=== PATIENT | female | born 1965 | race Caucasian/White ===

== ENCOUNTER 2022-12-01 19:27 | Inpatient (IN) | payer OTHER ==
[~2022-12-01] VITALS: Ht 159.4 cm; Wt 68.5 kg
--- NOTE | 2022-12-02 12:50 | NUR ---
DOWNSTREAM BIOMANUFACTURING TECHNICIANSTENCIL INSPECTOR NOTES: ADMITTED THIS 57 YEARS OLD FEMALE FROM [facility] ADMITTING HOSPITALIST DMITRY SAEED BOTTLE INSPECTOR,ALERT AND ORIENTED X 4 NOT IN ANY DISTRESS, ON ROOM AIR O2 SAT 95%, RESPIRATION IS EVEN AND UNLABORED NOTED WITH RIGHT FOOD WOUND WHICH IS WRAPPED, ADMITTING DX RIGHT FOOT CELLULITIS AND WOUND INFECTION, BED KEPT IN LOW AND LOCKED POSITION, CALL LIGHT WITHIN REACH, WILL ASSESS AND MONITOR
[2022-12-02] MEDS ORDERED: MAG HYDROX/AL HYDROX/SIMETH 30 ML UDC PO PRN (13:00)
[2022-12-02] MEDS ORDERED: ONDANSETRON HCL/PF 4 MG/2 ML VIAL IVP PRN (13:00)
[2022-12-02] MEDS ORDERED: DEXTROSE 50%-WATER 50 ML DISP.SYRIN IV PRN (13:00)
[2022-12-02] MEDS ORDERED: Z GUARD REMEDY 4 OZ OINT TP PRN (13:00)
[2022-12-02] MEDS ORDERED: ZOLPIDEM TARTRATE 5 MG TABLET PO PRN (13:00)
[2022-12-02] MEDS ORDERED: ACETAMINOPHEN 325 MG TABLET PO PRN (13:00)
[2022-12-02] MEDS ORDERED: MAGNESIUM HYDROXIDE 30 ML UDC PO PRN (13:00)
[2022-12-02] MEDS ORDERED: GABA600T PO (13:28)
[2022-12-02] MEDS ORDERED: HYDR25TA4 PO (13:45)
[2022-12-02] MEDS ORDERED: METO50TA16 PO (13:45)
[2022-12-02] MEDS: HYDROCODONE/APAP 5/325MG TABLET PO PRN (14:59)
[2022-12-02 16:00] VITALS: BP 125/71
--- NOTE | 2022-12-02 16:00 | NUR ---
RN NOTES: RIGHT MID FOOT AMPUTATION WOUND PHOTOS TAKEN AND PLACED IN THE CHART
[2022-12-02] MEDS: IV NS 0.9% 1,000 ML IV PRN (16:57)
[2022-12-02] MEDS: BLOOD SUGAR DIAGNOSTIC 1 EACH STRIP IN SCH ×2 (17:04→22:32)
[2022-12-02] MEDS: INSULIN REGULAR, HUMAN 100 UNIT/ML 3 ML VIAL SQ PRN ×2 (17:56→22:26)
[2022-12-02] MEDS ORDERED: ACET-868 PO (19:13)
[2022-12-02] MEDS ORDERED: ASPI-1169 PO (19:13)
[2022-12-02] MEDS ORDERED: ERGO500040 PO (19:13)
[2022-12-02] MEDS ORDERED: LACT1CAP71 PO (19:13)
[2022-12-02] MEDS ORDERED: INSU100V39 SQ (19:13)
[2022-12-02] MEDS ORDERED: MULT-754 PO (19:13)
[2022-12-02] MEDS ORDERED: ASCO-340 PO (19:13)
[2022-12-02] MEDS ORDERED: CLOP75TA15 PO (19:13)
[2022-12-02] MEDS ORDERED: OXYC10TA49 PO (19:13)
[2022-12-02] MEDS ORDERED: LEVO500T90 PO (19:13)
[2022-12-02] MEDS ORDERED: ONDA4TAB5 PO (19:13)
[2022-12-02] MEDS ORDERED: ATOR40TA PO (19:13)
[2022-12-02] MEDS ORDERED: ALBU6.7H9 IH (19:13)
[2022-12-02] MEDS ORDERED: RISP0.2515 PO (19:13)
[2022-12-02] MEDS ORDERED: DOXY100C2 PO (19:13)
[2022-12-02] MEDS ORDERED: VANC125C11 PO (19:13)
[2022-12-02] MEDS ORDERED: GABA-532 PO (19:13)
[2022-12-02] MEDS ORDERED: MELO-105 PO (19:13)
[2022-12-02] MEDS ORDERED: DICL100G34 TP (19:13)
[2022-12-02] MEDS ORDERED: ESCI10TA PO (19:13)
[2022-12-02] MEDS ORDERED: PANT40TA2 PO (19:13)
--- NOTE | 2022-12-02 19:40 | NUR ---
RN CLOSING NOTE PATIENT IN BED RESTING. A/OX4, ABLE TO COMMUNICATE NEEDS WITH THE STAFF. BREATHING EVEN AND NON LABORED, NO SOB. IV ACCESS LEFT FOREARM GAUGE#20 .. SAFETY MEASURES IN PLACE. KEPT BED IN LOCKED AND IN LOW POSITION, SIDE RAILS UP X2, CALL LIGHT WITHIN REACH. ENDORSED TO INCOMING SHIFT FOR CONTINUITY OF CARE.
[2022-12-02] MEDS: HYDROCODONE/APAP 10/325MG TABLET PO PRN (19:48)
[2022-12-02 20:00] VITALS: BP 140/76
--- NOTE | 2022-12-02 20:36 | NUR ---
MS RN OPENING NOTES; RECEIVED PATIENT AWAKE IN BED, BED IN LOW POSITION, CALL LIGHTS WITHIN REACH, NO COMPLAIN OF PAIN AND DISCOMFORT AT THIS TIME, ON ROOM AIR SATURATING WELL, PATIENT IS A/OX4 ABLE TO MAKE NEEDS KNOWN, AMBULATORY WITH SUPERVISION, ON ROOM AIR SATURATING WELL, PATIENT KEPT CLEAN AND DRY ALL NEEDS MET WILL CONTINUE TO MONITOR.
[2022-12-03] VITALS: BP 140/76
[2022-12-03] MEDS: HYDROCODONE/APAP 10/325MG TABLET PO PRN ×6 (00:15→23:20)
[2022-12-03 04:00] VITALS: BP 149/86
[2022-12-03] MEDS: IV NS 0.9% 1,000 ML IV PRN ×2 (05:28→18:13)
--- NOTE | 2022-12-03 06:50 | NUR ---
MS RN CLOSING NOTES: PATIENT AWAKE IN BED, BED IN LOW POSITION CALL LIGHTS WITHIN REACH, NO COMPLAIN OF PAIN AND DISCOMFORT AT THIS TIME, ON ROOM AIR SATURATING WELL, PATIENT IS A/O X4 ABLE TO MAKE NEEDS KNOW, PATIENT KEPT CLEAN AND DRY ALL NEEDS MET ENDORSE TO INCOMING SHIFT.
[2022-12-03 07:03] LABS: BASOPHILS % (AUTO) 0.3 % (0.0-2.0); EOSINOPHILS % (AUTO) 2.3 % (0.0-6.0); HEMATOCRIT 25 % (33-45); HEMOGLOBIN 8.1 g/dL (11.5-14.8); LYMPHOCYTES # (AUTO) 1.1 K/uL (0.8-4.8); LYMPHOCYTES % (AUTO) 15.6 % (20.0-44.0); MEAN CORPUSCULAR HGB CONC 32 g/dl (31.0-36.0); MEAN CORPUSCULAR VOLUME 83 fL (82-100); MONOCYTES # (AUTO) 0.7 K/uL (0.1-1.30); MONOCYTES % (AUTO) 9.1 % (2.0-12.0); NEUTROPHILS # (AUTO) 5.3 K/uL (1.8-8.9); NEUTROPHILS % (AUTO) 72.7 % (43.0-81.0); PLATELET COUNT (AUTO) 347 K/uL (150-450); RED BLOOD CELL COUNT(AUTO) 3.04 MIL/uL (4.0-5.2); WHITE BLOOD COUNT (AUTO) 7.3 K/uL (4.3-11.0)
[2022-12-03 07:17] LABS: CALCIUM, SERUM 8.2 mg/dL (8.5-10.1); MAGNESIUM 1.8 mg/dL (1.8-2.4); PHOSPHORUS 3.7 mg/dL (2.5-4.9); POTASSIUM 4.4 mmol/L (3.5-5.1)
[2022-12-03 07:30] LABS: THYROID STIMULATING HORMONE 3.713 uIU/mL (0.358-3.74)
[2022-12-03] MEDS ORDERED: PANTOPRAZOLE 40 MG TABLET.DR PO SCH (07:30)
[2022-12-03] MEDS: BLOOD SUGAR DIAGNOSTIC 1 EACH STRIP IN SCH ×4 (07:46→21:22)
[2022-12-03 08:00] VITALS: BP 156/92
[2022-12-03] MEDS ORDERED: VANCOMYCIN 1.5 GM in IV D5W 500ml IV ONE (08:00)
--- NOTE | 2022-12-03 08:00 | NUR ---
MS RN OPENING NOTES; RECEIVED PATIENT AWAKE IN BED, BED IN LOW POSITION, CALL LIGHTS WITHIN REACH, NO COMPLAIN OF PAIN AND DISCOMFORT AT THIS TIME, ON ROOM AIR SATURATING WELL, PATIENT IS A/OX4 ABLE TO MAKE NEEDS KNOWN, AMBULATORY WITH SUPERVISION, ON ROOM AIR SATURATING WELL. LEFT FOREARM PIV NOTED PATENT AND INTACT, FLUSHES WELL WITH NS RUNNING ORDERED. CALL LIGHT WITHIN REACH. PLAN OF CARE CONTINUE.
[2022-12-03 08:03] LABS: ALBUMIN 1.9 g/dL (3.4-5.0); BILIRUBIN,DIRECT 0.2 mg/dL (0.0-0.2); BILIRUBIN,TOTAL 0.2 mg/dL (0.2-1.0); TOTAL PROTEIN, SERUM 6.5 g/dL (6.4-8.2)
[2022-12-03 08:05] LABS: CREATININE 0.9 mg/dL (0.6-1.3)
[2022-12-03] MEDS: HEPARIN SODIUM, PORCINE 5000 UNITS/1 ML VIAL SQ SCH ×2 (08:07→21:13)
[2022-12-03] MEDS: CEFEPIME 2 GM in IV D5W 100 ML IV SCH ×3 (09:06→21:07)
[2022-12-03] MEDS: INSULIN REGULAR, HUMAN 100 UNIT/ML 3 ML VIAL SQ PRN ×3 (12:32→21:25)
[2022-12-03 16:00] VITALS: BP 121/92
--- NOTE | 2022-12-03 16:00 | NUR ---
WOUND CULTURE DONE AND SENT TO THE LAB
--- NOTE | 2022-12-03 16:00 | NUR ---
SEEN BY NUCLEAR DESIGN ENGINEER, RIGHT FOOT WOUND CARE RENDERED BY , WITH NEW ORDER NOTED AND CARRIED OUT. PATIENT WILL HAVE WOUND DEBRIDEMENT ON 12/06/22, NPO AFTER MIDNIGHT AND CAN HOLD BLOOD THINNERS ON THE DAY OFF THE SURGERY. NOTED AND CARRIED OUT.
--- NOTE | 2022-12-03 17:30 | NUR ---
NOTED PATIENT HOME MEDICATIONS IS NOT REVIEWED, INFORMED DMITRY AUTO REPAIR TECHNICIAN, PER DMITRY HE WILL REVIEWED IT, CHARGE NURSE LAURA OCASIO.
--- NOTE | 2022-12-03 17:41 | NUR ---
UA COLLECTED AND PLACED TO THE FRIDGE, CALLED LAB TO PICK IT UP
--- NOTE | 2022-12-03 18:25 | NUR ---
MS RN CLOSING NOTES; PATIENT SLEEPING IN BED, ALERT AND VERBALLY RESPONSIVE WHEN AWAKEN, BED IN LOW POSITION, CALL LIGHTS WITHIN REACH, NO COMPLAIN OF PAIN AND DISCOMFORT AT THIS TIME, ON ROOM AIR SATURATING WELL, PATIENT IS A/OX4 ABLE TO MAKE NEEDS KNOWN, AMBULATORY WITH SUPERVISION, ON ROOM AIR SATURATING WELL. RIGHT FOREARM PIV NOTED PATENT AND INTACT, FLUSHES WELL WITH NS RUNNING ORDERED. CALL LIGHT WITHIN REACH. WILL ENDORSE TO NIGHT NURSE FOR MARY.
[2022-12-03 18:35] LABS: BILIRUBIN,URINE NEGATIVE (NEGATIVE); COLOR,URINE YELLOW (YELLOW); LEUKOCYTE ESTERASE ,URINE NEGATIVE (NEGATIVE); NITRITE, URINE NEGATIVE (NEGATIVE); PROTEIN,URINE NEGATIVE (NEGATIVE); UGLUCOSE NEGATIVE (NEGATIVE); UROBILINOGEN,URINE 0.2 EU/dL (0.2)
[2022-12-03 18:59] LABS: BACTERIA,URINE None seen /HPF (None Seen); RBC,URINE 0-2 /HPF (0-2); SQUAMOUS EPITHELIAL CELL,UR Few /HPF (None Seen)
[2022-12-03 19:00] LABS: WBC,URINE 0-2 /HPF (0-3)
--- NOTE | 2022-12-03 19:15 | NUR ---
MS RN OPENING NOTES - RECEIVED PATIENT RESTING, HOB IN HIGH-SINGER'S. A/O X4. BREATHING EVEN AND NON-LABORED ON ROOM AIR. NOT IN APPARENT DISTRESS. C/O RIGHT FOOT PAIN 04/04. HAS RIGHT FOREARM IV ACCESS #22G WITH NS RUNNING AT 75 ML/HR. NO S/S OF INFILTRATION NOTED. RIGHT FOOT WOUND DRESSING DRY AND INTACT. SAFETY PRECAUTIONS IN PLACE: BED LOCKED AND IN LOW POSITION, SIDE RAILS UP X2, CALL LIGHT WITHIN REACH. WILL CONTINUE PLAN OF CARE.
[2022-12-03] MEDS: VANCOMYCIN 1 GM in IV D5W 250ml IV SCH (19:35)
[2022-12-03] MEDS: HYDROCODONE/APAP 5/325MG TABLET PO PRN (19:43)
[2022-12-03 20:00] VITALS: BP 160/87
[2022-12-03 21:38] VITALS: BP 162/92
--- NOTE | 2022-12-03 21:41 | NUR ---
NOTIFIED DR. WILSON THAT BP ARE HIGH: 161/79 AND 162/92. AWAITING RESPONSE. Addendum: 12/03/22 at 2243 by February PARAG PAGAN DR. WILSON RESPONDED ASKING WHAT DID THE PCP SAY, I REPLIED THAT NOTHING WAS ENDORSED TO ME. STILL AWAITING RESPONSE. PER , HE IS VERY BUSY. CHARGE NURSE AWARE. Addendum: 12/04/22 at 0622 by February PARAG PAGAN INPUT NEW ORDERS.
[2022-12-04] VITALS: BP 146/73
[2022-12-04] MEDS ORDERED: CLONIDINE HCL 0.1 MG TABLET PO PRN
[2022-12-04] MEDS: HYDROCODONE/APAP 5/325MG TABLET PO PRN ×3 (01:43→22:14)
[2022-12-04 04:00] VITALS: BP 155/80
[2022-12-04] MEDS: CEFEPIME 2 GM in IV D5W 100 ML IV SCH ×3 (04:24→21:23)
[2022-12-04] MEDS: HYDROCODONE/APAP 10/325MG TABLET PO PRN ×2 (05:24→10:31)
[2022-12-04 06:03] LABS: BASOPHILS % (AUTO) 0.7 % (0.0-2.0); EOSINOPHILS % (AUTO) 2.8 % (0.0-6.0); HEMATOCRIT 26 % (33-45); HEMOGLOBIN 8.3 g/dL (11.5-14.8); LYMPHOCYTES # (AUTO) 1.2 K/uL (0.8-4.8); LYMPHOCYTES % (AUTO) 18.5 % (20.0-44.0); MEAN CORPUSCULAR HGB CONC 32 g/dl (31.0-36.0); MEAN CORPUSCULAR VOLUME 81 fL (82-100); MONOCYTES # (AUTO) 0.5 K/uL (0.1-1.30); MONOCYTES % (AUTO) 8.5 % (2.0-12.0); NEUTROPHILS # (AUTO) 4.4 K/uL (1.8-8.9); NEUTROPHILS % (AUTO) 69.5 % (43.0-81.0); PLATELET COUNT (AUTO) 361 K/uL (150-450); RED BLOOD CELL COUNT(AUTO) 3.16 MIL/uL (4.0-5.2); WHITE BLOOD COUNT (AUTO) 6.4 K/uL (4.3-11.0)
[2022-12-04 06:16] LABS: CALCIUM, SERUM 8.5 mg/dL (8.5-10.1); CREATININE 0.7 mg/dL (0.6-1.3); POTASSIUM 4.7 mmol/L (3.5-5.1)
[2022-12-04] MEDS: BLOOD SUGAR DIAGNOSTIC 1 EACH STRIP IN SCH ×4 (07:02→22:02)
[2022-12-04] MEDS: INSULIN REGULAR, HUMAN 100 UNIT/ML 3 ML VIAL SQ PRN ×4 (07:03→22:00)
--- NOTE | 2022-12-04 07:27 | NUR ---
MS RN CLOSING NOTES - PATIENT LAYING IN BED, ABLE TO VERBALIZE NEEDS. NO ACUTE DISTRESS THROUGHOUT THE NIGHT. NO SOB OR NOTED. PAIN MANAGEMENT PER MD ORDER. AFEBRILE. HAS RIGHT HAND IV ACCESS #22G WITH NS RUNNING AT 75 ML/HR. INTACT, PATENT AND FLUSHING. RIGHT FOOT WOUND CARE RENDERED. ALL DUE MEDS GIVEN AND NEEDS ATTENDED. SAFETY PRECAUTIONS MAINTAINED. WILL ENDORSE TO NEXT SHIFT FOR MARY.
--- NOTE | 2022-12-04 07:30 | NUR ---
MS RN AM NOTES PT IN BED, AWAKE, AO X 4, ON ROOM AIR O2 SAT 95%, DENIES SOB, RESPIRATION UNLABORED, DENIES PAIN OR DISCOMFORT, RIGHT FOREARM IV ACCESS #22G WITH NS RUNNING AT 75 ML/HR. SITE CLEAR. CCHO DIET. SEE NURSING FLOWSHEET FOR SKIN ISSUES. RIGHT FOOT WOUND DRESSING DRY AND INTACT. BED REST FOR NOW. SAFETY PRECAUTIONS IN PLACE: BED LOCKED AND IN LOW POSITION, SIDE RAILS UP X2, CALL LIGHT WITHIN REACH. WILL CONTINUE PLAN OF CARE AND MONITOR
[2022-12-04] MEDS: PANTOPRAZOLE 40 MG TABLET.DR PO SCH (07:46)
[2022-12-04 08:00] VITALS: BP 136/73
[2022-12-04] MEDS: VANCOMYCIN 1 GM in IV D5W 250ml IV SCH ×2 (08:17→20:13)
[2022-12-04] MEDS: ESCITALOPRAM OXALATE (10 MG) 10 MG TABLET PO SCH (08:18)
[2022-12-04] MEDS: HYDROCHLOROTHIAZIDE 25 MG TABLET PO SCH ×2 (08:18→16:36)
[2022-12-04] MEDS: GABAPENTIN 300 MG CAPSULE PO SCH ×3 (08:18→16:36)
[2022-12-04] MEDS: METOPROLOL TARTRATE 50 MG TABLET PO SCH (08:19)
[2022-12-04] MEDS: ASPIRIN 81 MG TAB.CHEW PO SCH (08:20)
[2022-12-04] MEDS: DAKINS HALF STRENGTH (0.25%) 480 ML BOTTLE TOP SCH (08:21)
[2022-12-04] MEDS: HEPARIN SODIUM, PORCINE 5000 UNITS/1 ML VIAL SQ SCH ×2 (08:21→21:26)
--- NOTE | 2022-12-04 09:30 | NUR ---
RN NOTES DUE MEDS GIVEN
[2022-12-04] MEDS: IV NS 0.9% 1,000 ML IV PRN (12:34)
--- NOTE | 2022-12-04 15:13 | NUR ---
RN NOTES PATIENT MRSA + NARES. DR. DMITRY SAEED NOTIFIED.
[2022-12-04 16:00] VITALS: BP 128/71
--- NOTE | 2022-12-04 18:35 | NUR ---
MS RN CLOSING NOTES PT IN BED, AWAKE, AO X 4, ON ROOM AIR O2 SAT 99%, DENIES SOB, RESPIRATION UNLABORED, DENIES PAIN OR DISCOMFORT, RIGHT FOREARM IV ACCESS #22G WITH NS RUNNING AT 75 ML/HR. SITE CLEAR. CCHO DIET. RIGHT FOOT WOUND DRESSING DRY AND INTACT. CHANGED EARLIER. PM CARE DONE. BED REST FOR NOW. SAFETY PRECAUTIONS IN PLACE: BED LOCKED AND IN LOW POSITION, SIDE RAILS UP X2, CALL LIGHT WITHIN REACH. ALL NEEDS MET. WILL ENDORSE TO NEXT SHIFT FOR MARY. FOR DEBRIDEMENT ON TUESDAY. CONSENT SIGNED NPO POSTMIDNIGHT ON TUESDAY
--- NOTE | 2022-12-04 19:28 | NUR ---
RN OPENING NOTES; RECEIVED PT IN BED AAOX4 ABLE TO MAKE NEEDS KNOWN,ON RM AIR JOSE WELL SAT,98%,NO SOB/DISTRESS NOTED,IV SITE ON NAOMI ML,RHAND 22G WITH NS 75ML/HR INFUSING WELL,SAFETY MEASURE IN PLACE,CALL LIGHT WITHIN REACH,WILL CONTINUE TO MONITOR.
[2022-12-04 20:00] VITALS: BP 132/74
[2022-12-04] MEDS: ATORVASTATIN 40 MG TABLET PO SCH (21:23)
[2022-12-04] MEDS: risperiDONE 1 MG TABLET PO SCH (21:23)
[2022-12-04] MEDS: MUPIROCIN OINT 2% 22 GM TUBE NS SCH (21:45)
--- NOTE | 2022-12-04 22:14 | NUR ---
RN NOTES; PATIENT COMPLAINED OF RIGHT FOOT PAIN 7/,PRN NORCO 5-325MG PO WAS GIVEN,NO A/R NOTED.
[2022-12-05] MEDS: HYDROCODONE/APAP 5/325MG TABLET PO PRN ×4 (04:02→16:54)
--- NOTE | 2022-12-05 04:02 | NUR ---
RN NOTES; PATIENT COMPLAINED OF RIGHT FOOT PAIN 7/,PRN NORCO 5-325MG PO WAS GIVEN,NO A/R NOTED.
[2022-12-05] MEDS: CEFEPIME 2 GM in IV D5W 100 ML IV SCH ×3 (04:03→21:51)
[2022-12-05 05:00] VITALS: BP 130/76
[2022-12-05] MEDS: IV NS 0.9% 1,000 ML IV PRN ×2 (05:30→21:13)
--- NOTE | 2022-12-05 06:13 | NUR ---
RN CLOSING NOTES; PATIENT IN BED AAOX4 ABLE TO MAKE NEEDS KNOWN,ON RM AIR JOSE WELL SAT,99%,NO SOB/DISTRESS NOTED,DUE MEDS GIVEN ORDER,ALL NEEDS ATTENDED,PT ASKING PAIN MEDS ROUTINELY,IV SITE ON NAOMI ML,RHAND 22G WITH NS 75ML/HR INFUSING WELL,PT USED A BED SIDE COMMODE WITH FFW,AND ANGEL LUIS ASSIST,SAFETY MEASURE IN PLACE,CALL LIGHT WITHIN REACH,WILL ENDORSED TO NEXT SHIFT.
[2022-12-05 06:15] LABS: BASOPHILS # (AUTO) 0.1 K/uL (0.0-0.2); BASOPHILS % (AUTO) 0.7 % (0.0-2.0); EOSINOPHILS % (AUTO) 2.8 % (0.0-6.0); HEMATOCRIT 27 % (33-45); HEMOGLOBIN 8.5 g/dL (11.5-14.8); LYMPHOCYTES # (AUTO) 1.3 K/uL (0.8-4.8); LYMPHOCYTES % (AUTO) 19.1 % (20.0-44.0); MEAN CORPUSCULAR HGB CONC 32 g/dl (31.0-36.0); MEAN CORPUSCULAR VOLUME 83 fL (82-100); MONOCYTES # (AUTO) 0.6 K/uL (0.1-1.30); MONOCYTES % (AUTO) 8.4 % (2.0-12.0); NEUTROPHILS # (AUTO) 4.7 K/uL (1.8-8.9); PLATELET COUNT (AUTO) 367 K/uL (150-450); RED BLOOD CELL COUNT(AUTO) 3.21 MIL/uL (4.0-5.2); WHITE BLOOD COUNT (AUTO) 6.9 K/uL (4.3-11.0)
[2022-12-05] MEDS: INSULIN REGULAR, HUMAN 100 UNIT/ML 3 ML VIAL SQ PRN ×4 (06:36→21:59)
[2022-12-05] MEDS: BLOOD SUGAR DIAGNOSTIC 1 EACH STRIP IN SCH ×4 (06:37→22:03)
--- NOTE | 2022-12-05 07:15 | NUR ---
RN Note Received handover from LATASHA Agee. Patient is resting in bed and complained about right leg pain. Will check time for pain medication and administer according to schedule. Noted right LL edema, placed a pillow to elevate limb to reduce edema. Left upperarm ML is dry, intact and patent, right hand IV site is blocked, will remove the cannula later. NS running at 75mL/hr. Bed is locked and placed in the lowest position. All safety measures have been implemented. Will continue monitoring and care.
[2022-12-05 07:23] LABS: CALCIUM, SERUM 8.5 mg/dL (8.5-10.1); CREATININE 0.8 mg/dL (0.6-1.3); POTASSIUM 4.2 mmol/L (3.5-5.1)
[2022-12-05 08:00] VITALS: BP 144/81
[2022-12-05] MEDS: VANCOMYCIN 1 GM in IV D5W 250ml IV SCH (08:00)
[2022-12-05] MEDS: GABAPENTIN 300 MG CAPSULE PO SCH ×3 (08:28→16:54)
[2022-12-05] MEDS: PANTOPRAZOLE 40 MG TABLET.DR PO SCH (08:28)
[2022-12-05] MEDS: METOPROLOL TARTRATE 50 MG TABLET PO SCH (08:29)
[2022-12-05] MEDS: HYDROCHLOROTHIAZIDE 25 MG TABLET PO SCH ×2 (08:29→16:54)
[2022-12-05] MEDS: ESCITALOPRAM OXALATE (10 MG) 10 MG TABLET PO SCH (08:29)
[2022-12-05] MEDS: ASPIRIN 81 MG TAB.CHEW PO SCH (08:30)
[2022-12-05] MEDS: HEPARIN SODIUM, PORCINE 5000 UNITS/1 ML VIAL SQ SCH ×2 (08:34→21:00)
[2022-12-05] MEDS: DAKINS HALF STRENGTH (0.25%) 480 ML BOTTLE TOP SCH (08:34)
[2022-12-05] MEDS: MUPIROCIN OINT 2% 22 GM TUBE NS SCH ×2 (08:34→20:48)
--- NOTE | 2022-12-05 08:37 | NUR ---
RN Note Vancomycin trough level is >20. Hold the AM dose of vancomycin. Pharmacist is informed.
[2022-12-05 12:00] VITALS: BP 110/75
--- NOTE | 2022-12-05 14:00 | NUR ---
RN note Assisted patient to transfer to commode. Steady gait and relatively stable balance noted.
[2022-12-05 16:00] VITALS: BP 127/67
--- NOTE | 2022-12-05 19:40 | NUR ---
RN OPENING NOTE RECEIVED PT IN BED, AWAKE. PT A/O X4, ABLE TO MAKE NEEDS KNOWN. ON ROOM AIR, AND TOLERATING RA WELL. NO SOB, NO RESPIRATORY DISTRESS NOTED. IV ACCESS ON LEFT UA MIDLINE, AND RIGHT HAND 22G WITH NS AT 75ML/HR INFUSING WELL. SAFETY MEASURE IN PLACE: BED LOCKED IN LOW POSITION, SR UP X2, CALL LIGHT WITHIN REACH. WILL CONTINUE TO MONITOR PT.
[2022-12-05] MEDS: VANCOMYCIN 0.75 GM in IV D5W 250 ML IV SCH (20:47)
[2022-12-05] MEDS: ATORVASTATIN 40 MG TABLET PO SCH (21:57)
[2022-12-05] MEDS: risperiDONE 1 MG TABLET PO SCH (21:57)
[2022-12-05] MEDS: HYDROCODONE/APAP 10/325MG TABLET PO PRN (23:50)
--- NOTE | 2022-12-05 23:50 | NUR ---
RN NOTE PT REPORTS PAIN TO RIGHT FOOT. ANNMARIE ADMINSTERED TO PT FOR PAIN.
[2022-12-06 01:02] VITALS: BP 141/85
[2022-12-06 04:00] VITALS: BP 125/80
[2022-12-06] MEDS: CEFEPIME 2 GM in IV D5W 100 ML IV SCH (05:44)
[2022-12-06] MEDS: HYDROCODONE/APAP 10/325MG TABLET PO PRN ×3 (05:53→20:51)
--- NOTE | 2022-12-06 05:55 | NUR ---
RN NOTE PT REPORTS PAIN TO RIGHT FOOT. ANNMARIE ADMINSTERED TO PT FOR PAIN.
--- NOTE | 2022-12-06 06:50 | NUR ---
RN CLOSING NOTE LEFT PT IN BED, AWAKE. PT A/O X4, ABLE TO MAKE NEEDS KNOWN. ON ROOM AIR, AND TOLERATING RA WELL. NO SOB, NO RESPIRATORY DISTRESS NOTED. IV ACCESS ON LEFT UA MIDLINE, AND RIGHT HAND 22G WITH NS AT 75ML/HR INFUSING WELL. SAFETY MEASURE IN PLACE: BED LOCKED IN LOW POSITION, SR UP X2, CALL LIGHT WITHIN REACH. ACCUCHEK WAS DONE, BS: 156. PT IS NPO D/T DEBRIDEMENT SCHEDULED FOR THIS AM. PATIENT IS TAKEN TO THE OR FOR WOUND DEBRIDEMENT. CHECK LIST COMPLETED. WILL ENDORSE TO AM SHIFT NURSE FOR MARY.
[2022-12-06 06:56] LABS: BASOPHILS # (AUTO) 0.1 K/uL (0.0-0.2); BASOPHILS % (AUTO) 0.7 % (0.0-2.0); EOSINOPHILS % (AUTO) 2.4 % (0.0-6.0); HEMATOCRIT 26 % (33-45); HEMOGLOBIN 8.2 g/dL (11.5-14.8); LYMPHOCYTES # (AUTO) 1.6 K/uL (0.8-4.8); LYMPHOCYTES % (AUTO) 22.3 % (20.0-44.0); MEAN CORPUSCULAR HGB CONC 32 g/dl (31.0-36.0); MEAN CORPUSCULAR VOLUME 83 fL (82-100); MONOCYTES # (AUTO) 0.6 K/uL (0.1-1.30); MONOCYTES % (AUTO) 8.5 % (2.0-12.0); NEUTROPHILS # (AUTO) 4.8 K/uL (1.8-8.9); NEUTROPHILS % (AUTO) 66.1 % (43.0-81.0); PLATELET COUNT (AUTO) 335 K/uL (150-450); RED BLOOD CELL COUNT(AUTO) 3.09 MIL/uL (4.0-5.2); WHITE BLOOD COUNT (AUTO) 7.3 K/uL (4.3-11.0)
[2022-12-06] MEDS ORDERED: ANESTHESIA TRAY IN PYXIS 1 EA TRAY MC ONE (07:07)
[2022-12-06] MEDS ORDERED: LIDOCAINE 1% INJ 50 ML MDV IJ ONE (07:08)
[2022-12-06 07:14] LABS: MAGNESIUM 1.8 mg/dL (1.8-2.4); PHOSPHORUS 3.5 mg/dL (2.5-4.9)
[2022-12-06 07:18] LABS: CALCIUM, SERUM 8.5 mg/dL (8.5-10.1); CREATININE 0.8 mg/dL (0.6-1.3); POTASSIUM 3.9 mmol/L (3.5-5.1)
--- NOTE | 2022-12-06 07:33 | NUR ---
RN OPENING NOTE RECEIVED PT IN BED, AWAKE. PT A/O X4, ABLE TO MAKE NEEDS KNOWN. ON ROOM AIR, AND TOLERATING RA WELL. NO SOB, NO RESPIRATORY DISTRESS NOTED. IV ACCESS ON LEFT UA MIDLINE, AND RIGHT HAND 22G WITH NS AT 75ML/HR INFUSING WELL. SAFETY MEASURE IN PLACE: BED LOCKED IN LOW POSITION, SR UP X2, CALL LIGHT WITHIN REACH.ACCUCHEK WAS DONE . PATIENT IS TAKEN TO THE OR FOR WOUND DEBRIDEMENT WILL FALLOW UP ON PATIENT CONDITION AFTER PATIENT RETUNE TO HER BED
[2022-12-06] MEDS: BLOOD SUGAR DIAGNOSTIC 1 EACH STRIP IN SCH ×4 (07:41→21:19)
[2022-12-06] MEDS ORDERED: CELLULOSE,OXIDIZED 1 PKT EACH MC ONE (07:59)
[2022-12-06] MEDS: VANCOMYCIN 0.75 GM in IV D5W 250 ML IV SCH ×3 (08:00→23:25)
[2022-12-06] MEDS ORDERED: FENTANYL PF 100MCG/2ML AMPUL ONE (08:21)
[2022-12-06] MEDS: METOPROLOL TARTRATE 50 MG TABLET PO SCH (09:03)
[2022-12-06] MEDS: GABAPENTIN 300 MG CAPSULE PO SCH ×3 (09:03→16:04)
[2022-12-06] MEDS: HYDROCHLOROTHIAZIDE 25 MG TABLET PO SCH ×2 (09:03→16:04)
[2022-12-06] MEDS: ASPIRIN 81 MG TAB.CHEW PO SCH (09:03)
[2022-12-06] MEDS: ESCITALOPRAM OXALATE (10 MG) 10 MG TABLET PO SCH (09:04)
[2022-12-06] MEDS: HEPARIN SODIUM, PORCINE 5000 UNITS/1 ML VIAL SQ SCH ×2 (09:07→20:52)
[2022-12-06] MEDS: DAKINS HALF STRENGTH (0.25%) 480 ML BOTTLE TOP SCH (09:07)
[2022-12-06] MEDS: MUPIROCIN OINT 2% 22 GM TUBE NS SCH ×2 (09:08→20:50)
[2022-12-06] MEDS: IV NS 0.9% 1,000 ML IV PRN ×2 (09:08→18:03)
[2022-12-06] MEDS: PANTOPRAZOLE 40 MG TABLET.DR PO SCH (09:10)
[2022-12-06] MEDS: HYDROCODONE/APAP 5/325MG TABLET PO PRN (09:17)
[2022-12-06] MEDS ORDERED: MUPIROCIN OINT 2% 22 GM TUBE TP SCH (10:00)
[2022-12-06] MEDS ORDERED: MORPHINE SULFATE INJ 4 MG/ML DISP.SYRIN IV PRN (11:00)
[2022-12-06] MEDS: INSULIN REGULAR, HUMAN 100 UNIT/ML 3 ML VIAL SQ PRN ×3 (11:35→21:16)
[2022-12-06] MEDS: MORPHINE SULFATE INJ 4 MG/ML DISP.SYRIN IV PRN (11:36)
[2022-12-06 12:10] VITALS: BP 110/78
[2022-12-06] MEDS: PROSOURCE / PROSTAT (PYXIS) 30 ML UDC GT SCH (16:04)
--- NOTE | 2022-12-06 18:41 | NUR ---
RN CLOSING NOTE PATIENT IS IN BED, AWAKE. PT A/O X4, ABLE TO MAKE NEEDS KNOWN. ON ROOM AIR, AND TOLERATING RA WELL. NO SOB, NO RESPIRATORY DISTRESS NOTED. IV ACCESS ON LEFT UA PICC LINE, NS AT 75ML/HR INFUSING WELL. PATIENT UNDERWENT RIGHT FOOT DEBRIDEMENT , SURGICAL DRESSING IN PLACE , DO NOT CHANGE DRESSING TILL TOMORROW AM BY SURGEON .SAFETY MEASURE IN PLACE: BED LOCKED IN LOW POSITION, SR UP X2, CALL LIGHT WITHIN REACH. ALL MEDICATIONS WERE ADMINISTRED , ALL NEEDS WERE MET . WILL ENDORSE TO SURPLUS PROPERTY DISPOSAL AGENT NURSE FOR MARY.
--- NOTE | 2022-12-06 19:20 | NUR ---
MS RN OPENING NOTE PATIENT IS IN BED, AWAKE. A/O X4, ABLE TO MAKE NEEDS KNOWN; S/P RIGHT FOOT DEBRIDEMENT; STABLE ON ROOM AIR, TOLERATING WELL AND NO S/S OF SOB AND RESPIRATORY DISTRESS NOTED; NO COMPLAINS OF PAIN AND DISCOMFORT AT THIS TIME; WITH IV ACCESS ON LEFT UA PICC LINE WITH NS AT 75ML/HR INFUSING WELL; SAFETY MEASURE IN PLACE: BED LOCKED IN LOW POSITION, SR UP X2, CALL LIGHT WITHIN REACH; ENCOURAGED VERBALIZATION OF NEEDS; WILL CONTINUE TO MONITOR THROUGHOUT SHIFT
[2022-12-06 20:00] VITALS: BP 146/87
[2022-12-06] MEDS: risperiDONE 1 MG TABLET PO SCH (21:03)
[2022-12-06] MEDS: ATORVASTATIN 40 MG TABLET PO SCH (21:03)
--- NOTE | 2022-12-06 22:30 | NUR ---
MS RN NOTE ACCUCHECK WAS DONE AND FBS WAS 253. ADMINISTERED 6 UNITS OF INSULIN PER SLIDING SCALE. PATIENT TOLERATED WELL; WILL CONTINUE TO MONITOR
[2022-12-07] MEDS: HYDROCODONE/APAP 10/325MG TABLET PO PRN ×3 (01:56→22:54)
[2022-12-07 04:00] VITALS: BP 127/81
[2022-12-07] MEDS: IV NS 0.9% 1,000 ML IV PRN ×2 (04:23→18:17)
[2022-12-07] MEDS: BLOOD SUGAR DIAGNOSTIC 1 EACH STRIP IN SCH ×4 (06:34→22:47)
[2022-12-07] MEDS: INSULIN REGULAR, HUMAN 100 UNIT/ML 3 ML VIAL SQ PRN ×4 (06:38→22:52)
[2022-12-07] MEDS: PANTOPRAZOLE 40 MG TABLET.DR PO SCH (06:38)
--- NOTE | 2022-12-07 06:40 | NUR ---
MS RN NOTE ACCUCHECK WAS DONE AND PATIENT'S BLOOD SUGAR WAS 155. ADMINISTERED 2 UNITS OF INSULIN PER SLIDING SCALE.
--- NOTE | 2022-12-07 06:51 | NUR ---
MS RN CLOSING NOTE PATIENT IN BED, ASLEEP. A/O X4, ABLE TO MAKE NEEDS KNOWN; S/P RIGHT FOOT WOUND DEBRIDEMENT; STABLE ON ROOM AIR, TOLERATING WELL AND NO S/S OF RESPIRATORY DISTRESS NOTED; NO COMPLAINS OF PAIN AND DISCOMFORT AT THIS TIME; WITH IV ACCESS ON LEFT UA PICC LINE WITH NS AT 75ML/HR INFUSING WELL; ADMINISTERED MEDICATIONS PRESCRIBED; PATIENT'S NEEDS ATTENDED; MONITORED PATIENT ACCORDINGLY; SAFETY MEASURE IN PLACE: BED LOCKED IN LOW POSITION, SR UP X2, CALL LIGHT WITHIN REACH; WILL ENDORSE TO AM NURSE FOR MARY.
[2022-12-07 06:55] LABS: BASOPHILS # (AUTO) 0.1 K/uL (0.0-0.2); BASOPHILS % (AUTO) 0.7 % (0.0-2.0); HEMATOCRIT 23 % (33-45); HEMOGLOBIN 7.2 g/dL (11.5-14.8); LYMPHOCYTES # (AUTO) 1.7 K/uL (0.8-4.8); LYMPHOCYTES % (AUTO) 19.4 % (20.0-44.0); MEAN CORPUSCULAR HGB CONC 32 g/dl (31.0-36.0); MEAN CORPUSCULAR VOLUME 83 fL (82-100); MONOCYTES # (AUTO) 0.6 K/uL (0.1-1.30); MONOCYTES % (AUTO) 7.4 % (2.0-12.0); NEUTROPHILS % (AUTO) 70.5 % (43.0-81.0); PLATELET COUNT (AUTO) 279 K/uL (150-450); RED BLOOD CELL COUNT(AUTO) 2.73 MIL/uL (4.0-5.2); WHITE BLOOD COUNT (AUTO) 8.5 K/uL (4.3-11.0)
[2022-12-07 07:14] LABS: CALCIUM, SERUM 8.3 mg/dL (8.5-10.1); CREATININE 0.7 mg/dL (0.6-1.3); POTASSIUM 3.9 mmol/L (3.5-5.1)
--- NOTE | 2022-12-07 07:20 | NUR ---
GENERAL HELPER OPENING NOTES Receiuevd pt awake in bed A4X4. No complaints of pain or discomfort at this time. Pt is on RA and tolerating it well. IV access on NAOMI PICC line patent and intact running NS @ 75cc/hr. HOB elevated to pts comfort. Siderails up at all times. Call light within reach. Will continue to monitor.
[2022-12-07 08:00] VITALS: BP 163/96
[2022-12-07] MEDS: GABAPENTIN 300 MG CAPSULE PO SCH ×3 (08:34→16:56)
[2022-12-07] MEDS: ESCITALOPRAM OXALATE (10 MG) 10 MG TABLET PO SCH (08:34)
[2022-12-07] MEDS: METOPROLOL TARTRATE 50 MG TABLET PO SCH (08:34)
[2022-12-07] MEDS: HYDROCHLOROTHIAZIDE 25 MG TABLET PO SCH ×2 (08:34→16:56)
[2022-12-07] MEDS: ASPIRIN 81 MG TAB.CHEW PO SCH (08:34)
[2022-12-07] MEDS: PROSOURCE / PROSTAT (PYXIS) 30 ML UDC GT SCH ×2 (08:36→17:40)
[2022-12-07] MEDS: MORPHINE SULFATE INJ 4 MG/ML DISP.SYRIN IV PRN (08:37)
[2022-12-07] MEDS: HEPARIN SODIUM, PORCINE 5000 UNITS/1 ML VIAL SQ SCH ×2 (09:00→21:00)
[2022-12-07] MEDS: DAKINS HALF STRENGTH (0.25%) 480 ML BOTTLE TOP SCH (09:09)
[2022-12-07] MEDS: MUPIROCIN OINT 2% 22 GM TUBE NS SCH ×2 (09:09→22:33)
[2022-12-07] MEDS: VANCOMYCIN 0.75 GM in IV D5W 250 ML IV SCH ×2 (10:17→22:46)
[2022-12-07 16:00] VITALS: BP 119/98
--- NOTE | 2022-12-07 16:19 | NUR ---
cm aware of discharge ,awaits bed in snf.
--- NOTE | 2022-12-07 18:33 | NUR ---
SERVICE LEARNING COORDINATOR CLOSING NOTES All due meds and tx given as ordered. Pt tolerated everything well. All needs attended to. Will endorse to oncoming nurse.
--- NOTE | 2022-12-07 19:30 | NUR ---
RN NOTE PATIENT IN BED, AAOX4, ABLE TO MAKE NEEDS KNOWN. S/P RIGHT FOOT WOUND DEBRIDEMENT, DRESSING INTACT, NO S/S OF ACTIVE BLEEDING. STABLE ON ROOM AIR, TOLERATING WELL AND NO S/S OF RESPIRATORY DISTRESS NOTE. NO C/O PAIN OR DISCOMFORT AT THIS TIME; WITH IV ACCESS ON LEFT UA PICC LINE WITH NS AT 75ML/HR INFUSING WELL, WELL JOSE. SAFETY PRECAUTION IMPLEMENTED AT ALL TIMES.
[2022-12-07] MEDS: ATORVASTATIN 40 MG TABLET PO SCH (22:31)
[2022-12-07] MEDS: risperiDONE 1 MG TABLET PO SCH (22:31)
[2022-12-08] VITALS: BP 134/85
[2022-12-08] MEDS: HYDROCODONE/APAP 10/325MG TABLET PO PRN ×3 (03:24→16:21)
[2022-12-08 06:51] LABS: BASOPHILS # (AUTO) 0.1 K/uL (0.0-0.2); BASOPHILS % (AUTO) 0.8 % (0.0-2.0); EOSINOPHILS % (AUTO) 2.7 % (0.0-6.0); HEMATOCRIT 23 % (33-45); HEMOGLOBIN 7.2 g/dL (11.5-14.8); LYMPHOCYTES # (AUTO) 1.7 K/uL (0.8-4.8); LYMPHOCYTES % (AUTO) 24.5 % (20.0-44.0); MEAN CORPUSCULAR HGB CONC 32 g/dl (31.0-36.0); MEAN CORPUSCULAR VOLUME 84 fL (82-100); MONOCYTES # (AUTO) 0.6 K/uL (0.1-1.30); MONOCYTES % (AUTO) 8.4 % (2.0-12.0); NEUTROPHILS # (AUTO) 4.5 K/uL (1.8-8.9); NEUTROPHILS % (AUTO) 63.6 % (43.0-81.0); PLATELET COUNT (AUTO) 239 K/uL (150-450); RED BLOOD CELL COUNT(AUTO) 2.68 MIL/uL (4.0-5.2); WHITE BLOOD COUNT (AUTO) 7.1 K/uL (4.3-11.0)
--- NOTE | 2022-12-08 07:00 | NUR ---
RN NOTE PT REMAINS IN STABLE CONDITION, NO SIGNIFICANT CHANGES NOTED. ADMINISTERED MEDICATIONS PRESCRIBED. ALL NEEDS ATTENDED. SAFETY MEASURE IN PLACED: BED LOCKED IN LOW POSITION, SR UP X2, CALL LIGHT WITHIN REACH. WILL ENDORSE TO AM SHIFT FOR MARY..
[2022-12-08] MEDS: BLOOD SUGAR DIAGNOSTIC 1 EACH STRIP IN SCH ×3 (07:34→17:33)
[2022-12-08] MEDS: PANTOPRAZOLE 40 MG TABLET.DR PO SCH (07:45)
[2022-12-08 08:00] VITALS: BP 134/85
[2022-12-08] MEDS: INSULIN REGULAR, HUMAN 100 UNIT/ML 3 ML VIAL SQ PRN ×3 (08:12→17:40)
[2022-12-08 08:17] LABS: CALCIUM, SERUM 8.3 mg/dL (8.5-10.1); CREATININE 0.7 mg/dL (0.6-1.3)
[2022-12-08] MEDS: MUPIROCIN OINT 2% 22 GM TUBE NS SCH (08:22)
[2022-12-08] MEDS: PROSOURCE / PROSTAT (PYXIS) 30 ML UDC GT SCH ×2 (08:22→16:21)
[2022-12-08] MEDS: GABAPENTIN 300 MG CAPSULE PO SCH ×3 (08:24→16:50)
[2022-12-08] MEDS: METOPROLOL TARTRATE 50 MG TABLET PO SCH (08:24)
[2022-12-08] MEDS: HYDROCHLOROTHIAZIDE 25 MG TABLET PO SCH ×2 (08:24→16:52)
[2022-12-08] MEDS: DAKINS HALF STRENGTH (0.25%) 480 ML BOTTLE TOP SCH (08:25)
[2022-12-08] MEDS: HEPARIN SODIUM, PORCINE 5000 UNITS/1 ML VIAL SQ SCH (08:26)
[2022-12-08] MEDS: ASPIRIN 81 MG TAB.CHEW PO SCH (08:26)
[2022-12-08] MEDS: ESCITALOPRAM OXALATE (10 MG) 10 MG TABLET PO SCH (08:28)
[2022-12-08] MEDS: VANCOMYCIN 0.75 GM in IV D5W 250 ML IV SCH (09:37)
[2022-12-08] MEDS: IV NS 0.9% 1,000 ML IV PRN (10:24)
--- NOTE | 2022-12-08 14:22 | NUR ---
COVID TESTING TAKEN.
--- NOTE | 2022-12-08 15:00 | NUR ---
REPORT GIVEN TO ISAI PAGAN AT [facility].
[2022-12-08] MEDS ORDERED: VANC750F2 IV (15:08)
--- NOTE | 2022-12-08 15:50 | NUR ---
MONEY $210.OO AND 2 RINGS WERE GIVEN BACK TO THE PATIENT AND SIGNED THE RECEIPT FORM IN THE CHART. ANOTHER NURSE WITNESS WAS PRESENT.
[2022-12-08 16:00] VITALS: BP 135/77
[2022-12-08 16:52] VITALS: BP 135/77
--- NOTE | 2022-12-08 18:00 | NUR ---
PATIENT IS DISCHARGED TO [facility] VIA AMBULANCE, REPORT GIVEN TO ISAI PAGAN,PATIENT IS IN STABLE CONDITION.
== END 2022-12-08 18:19 | DRG 314 ==
LOC: TELE1 12-02 12:17 → MEDSG1 12-02 14:14
PROVIDERS: ADMIT Nurse Practitioner Acute Care; ATTEND Nurse Practitioner Acute Care
PROC: 05HC33Z Insertion of Infusion Device into Left Basilic Vein, Percutaneous Approach (ICD-10-PCS; 2022-12-04)
PROC: 0QBN0ZZ Excision of Right Metatarsal, Open Approach (ICD-10-PCS; principal; 2022-12-06)
PROC: 0KBV0ZZ Excision of Right Foot Muscle, Open Approach (ICD-10-PCS; 2022-12-06)
PROC: 02HV33Z Insertion of Infusion Device into Superior Vena Cava, Percutaneous Approach (ICD-10-PCS; 2022-12-06)
PROC: B548ZZA Ultrasonography of Superior Vena Cava, Guidance (ICD-10-PCS; 2022-12-06)
DX: E11.69 Type 2 diabetes mellitus with other specified complication (principal); M86.171 Other acute osteomyelitis, right ankle and foot; E43 Unspecified severe protein-calorie malnutrition; E11.42 Type 2 diabetes mellitus with diabetic polyneuropathy; E11.621 Type 2 diabetes mellitus with foot ulcer; E11.51 Type 2 diabetes mellitus with diabetic peripheral angiopathy without gangrene; E87.1 Hypo-osmolality and hyponatremia; E88.09 Other disorders of plasma-protein metabolism, not elsewhere classified; D63.8 Anemia in other chronic diseases classified elsewhere; F29 Unspecified psychosis not due to a substance or known physiological condition; E86.1 Hypovolemia; L03.115 Cellulitis of right lower limb; L97.414 Non-pressure chronic ulcer of right heel and midfoot with necrosis of bone; E11.40 Type 2 diabetes mellitus with diabetic neuropathy, unspecified; Z20.822 Contact with and (suspected) exposure to COVID-19; Z89.431 Acquired absence of right foot; E11.628 Type 2 diabetes mellitus with other skin complications; I10 Essential (primary) hypertension; J45.909 Unspecified asthma, uncomplicated; Z87.891 Personal history of nicotine dependence; Z88.0 Allergy status to penicillin; B95.62 Methicillin resistant Staphylococcus aureus infection as the cause of diseases classified elsewhere; B95.1 Streptococcus, group B, as the cause of diseases classified elsewhere
CPT/HCPCS: 36410; 36415; 36569; 71045-TC; 73630-TC; 80048-TC; 80061-TC; 80076-TC; 80202-TC; 81001; 82962-TC; 83735-TC; 84100-TC; 84443-TC; 85025-TC; 85652-TC; 86140-TC; 86803; 87040-TC; 87081-TC; 87086-TC; 87806; 93926-TC; 97112-TC; 97116-TC; 97530-TC; A4223; A6253; A6403; G0378; J0690; J0692; J1644; J1815; J2270; J3010; J3370; J3490; J7030; J7060